=== PATIENT | female | born 1965 | race Caucasian/White ===

== ENCOUNTER 2017-10-06 12:37 | Emergency (ER) | payer OTHER ==
[2017-10-06] MEDS: HYDROCODONE/APAP (5/325) TAB PO (14:08)
== END 2017-10-06 15:01 | disposition home or self-care (01) ==
LOC: FTE 12:37
DX: L03.032 Cellulitis of left toe (principal); I10 Essential (primary) hypertension; E11.9 Type 2 diabetes mellitus without complications; Z79.84 Long term (current) use of oral hypoglycemic drugs; Z79.82 Long term (current) use of aspirin
CPT/HCPCS: 73630; 73630-LT; 99284-25

== ENCOUNTER 2018-03-14 15:58 | Emergency (ER) | payer OTHER | END 2018-03-14 17:46 | disposition home or self-care (01) | LOC: FTE 15:58 | DX: H60.502 Unspecified acute noninfective otitis externa, left ear (principal); E11.9 Type 2 diabetes mellitus without complications; I10 Essential (primary) hypertension; Z79.82 Long term (current) use of aspirin; Z79.84 Long term (current) use of oral hypoglycemic drugs | CPT/HCPCS: 99283; Z7502 ==

== ENCOUNTER 2018-03-31 21:58 | Emergency (ER) | payer OTHER ==
[2018-04-01] MEDS: IBUPROFEN 600 MG TAB PO (00:52)
[2018-04-01] MEDS: CEFTRIAXONE 1 GM INJ IM (00:52)
[2018-04-01] MEDS: NEOMYC/POLYMYX/BACIT 30 GM OINT TOP (01:35)
== END 2018-04-01 03:14 | disposition home or self-care (01) ==
LOC: FTE 21:58
DX: L03.811 Cellulitis of head [any part, except face] (principal); E11.9 Type 2 diabetes mellitus without complications; I10 Essential (primary) hypertension; Z79.82 Long term (current) use of aspirin; Z79.84 Long term (current) use of oral hypoglycemic drugs
CPT/HCPCS: 96372; 99284-25

== ENCOUNTER 2018-12-13 01:18 | Emergency (ER) | payer OTHER ==
[2018-12-13 02:33] LABS: ADD MAN DIFF? NO
[2018-12-13 02:34] LABS: MODE ROOM AIR; MetHgb Venous 0.2 %; Sample Type Blood venous; Site VENOUS LINE; Venous COHb 0.3 %; Venous Fraction OxyHgb 39.4 %; Venous Oxygen Sat 39.6 mmHG (55.0-75.0); Venous Total Hemglobin 14.7 g/dl
[2018-12-13 02:35] LABS: BASOPHILS % 0.3 % (0.0-2.0); EOSINOPHILS # 0.1 10^3/ul (0.0-0.5); EOSINOPHILS % 1.2 % (0.0-7.0); HEMATOCRIT 39.7 % (37.0-47.0); HEMOGLOBIN 13.6 g/dl (12.0-16.0); LYMPHOCYTES # 2.2 10^3/ul (0.8-2.9); LYMPHOCYTES % 31.9 % (15.0-51.0); MEAN CORPUSCULAR HEMOGLOBIN 29.8 pg (29.0-33.0); MEAN CORPUSCULAR HGB CONC 34.3 g/dl (32.0-37.0); MEAN CORPUSCULAR VOLUME 87.1 fl (82.0-101.0); MEAN PLATELET VOLUME 10.8 fl (7.4-10.4); MONOCYTE # 0.4 10^3/ul (0.3-0.9); MONOCYTES % 6.3 % (0.0-11.0); NEUTROPHIL # 4.1 10^3/ul (1.6-7.5); NEUTROPHILS % 60.2 % (39.0-77.0); PLATELET COUNT 274 10^3/UL (140-415); RED BLOOD COUNT 4.56 10^6/ul (4.20-5.40); RED CELL DISTRIBUTION WIDTH 11.9 % (11.5-14.5)
[2018-12-13 02:35] LABS: WHITE BLOOD COUNT 6.8 10^3/ul (4.8-10.8)
[2018-12-13] MEDS: SOD CHLORIDE 0.9% 540 ML IV (02:46)
[2018-12-13 02:54] LABS: ANION GAP 9 (5-13); Estimated GFR > 60 mL/min (>60)
[2018-12-13 02:59] LABS: ADD UMIC YES; UR ASCORBIC ACID NEGATIVE (NEGATIVE); UR BILIRUBIN (Dip) NEGATIVE (NEGATIVE); UR BLOOD (Dip) 2+ mg/dL (NEGATIVE); UR BUDDING YEAST MANY /HPF (NONE SEEN); UR CLARITY CLEAR (CLEAR); UR COLOR COLORLESS (YELLOW); UR GLUCOSE (Dip) 3+ mg/dL (NEGATIVE); UR KETONES (Dip) NEGATIVE (NEGATIVE); UR LEUKOCYTE ESTERASE (Dip) TRACE Leu/ul (NEGATIVE); UR NITRITE (Dip) NEGATIVE (NEGATIVE); UR RBC 159 /HPF (0-5); UR SPECIFIC GRAVITY (Dip) 1.026 (1.003-1.030); UR SQUAMOUS EPITHELIAL CELL FEW /HPF (FEW); UR TOTAL PROTEIN (Dip) 1+ mg/dl (NEGATIVE); UR UROBILINOGEN (Dip) NEGATIVE (NEGATIVE); UR WBC 12 /HPF (0-5)
[2018-12-13 03:13] LABS: ALANINE AMINOTRANSFERASE 22 IU/L (13-69); ALBUMIN 3.9 g/dl (3.3-4.9); ALBUMIN/GLOBULIN RATIO 0.97; ALKALINE PHOSPHATASE 210 IU/L (42-121); ASPARTATE AMINO TRANSFERASE 17 IU/L (15-46); BILIRUBIN,INDIRECT 0.3 mg/dl (0-1.1); BILIRUBIN,TOTAL 0.3 mg/dl (0.2-1.3); BLOOD UREA NITROGEN 9 mg/dl (7-20); CALCIUM 9.5 mg/dl (8.4-10.2); CARBON DIOXIDE 30 mmol/L (21-31); CHLORIDE 100 mmol/L (97-110); CREATININE 0.35 mg/dl (0.44-1.00); MAGNESIUM 1.9 mg/dl (1.7-2.5); PHOSPHORUS 3.7 mg/dl (2.5-4.9); POTASSIUM 4.2 mmol/L (3.5-5.1); SODIUM 139 mmol/L (135-144); TOTAL PROTEIN 7.9 g/dl (6.1-8.1)
[2018-12-13 03:24] LABS: TROPONIN-I < 0.012 ng/ml (0.000-0.120)
[2018-12-13 03:41] LABS: GLUCOSE 401 mg/dl (70-220)
[2018-12-13] MEDS: INSULIN REGULAR, HUMAN 100 UNIT/1 ML 3ML VIAL SC (04:46)
== END 2018-12-13 05:25 | disposition home or self-care (01) ==
LOC: E/R 01:18
DX: R31.9 Hematuria, unspecified (principal); I10 Essential (primary) hypertension; H72.92 Unspecified perforation of tympanic membrane, left ear; E11.49 Type 2 diabetes mellitus with other diabetic neurological complication; E11.40 Type 2 diabetes mellitus with diabetic neuropathy, unspecified; Z79.84 Long term (current) use of oral hypoglycemic drugs; Z79.82 Long term (current) use of aspirin
CPT/HCPCS: 36415; 80053; 81001; 82803; 82962; 83735; 84100; 84484; 85025; 87086; 93005; 96372; 99284-25